=== PATIENT | female | born 1945 | race Hispanic/Latino ===

== ENCOUNTER 2021-07-10 09:00 | Observation (INO) | payer OTHER, MEDICARE ==
[2021-07-05 10:18] VITALS: BP 129/66
[2021-07-05 10:32] LABS: BASOPHILS % (AUTO) 1.2 % (0.0-5.0); EOSINOPHILS % (AUTO) 2.9 % (0.0-8.0); LYMPHOCYTES % (AUTO) 26.4 % (21.0-51.0); MEAN CORPUSCULAR HEMOGLOBIN 31.3 pg (27.0-33.0); MEAN CORPUSCULAR HGB CONC 33.7 g/dL (32.0-36.0); MONOCYTES % (AUTO) 6.2 % (3.0-13.0); NEUTROPHILS % (AUTO) 62.9 % (40.0-77.0); PLATELET COUNT (AUTO) 244 K/uL (130-400); RED BLOOD CELL COUNT(AUTO) 4.41 MIL/uL (4.00-5.50); RED CELL DISTRIBUTION WIDTH 12.6 % (11.0-15.5); WHITE BLOOD COUNT (AUTO) 4.8 K/uL (4.8-10.8)
[2021-07-05 10:44] LABS: INR 0.99 (0.85-1.15); PROTHROMBIN TIME 10.8 SEC (9.6-11.6)
[2021-07-05 10:44] LABS: CREATININE 0.8 mg/dL (0.5-1.5); POTASSIUM 4.7 mmol/L (3.5-5.1)
[2021-07-05 10:46] LABS: APPEARANCE,URINE Clear (CLEAR); BILIRUBIN,URINE Negative (NEGATIVE); COLOR,URINE Yellow (YELLOW); GLUCOSE, URINE (UA) Negative (NEGATIVE); KETONES,URINE Negative (NEGATIVE); LEUKOCYTE ESTERASE ,URINE Trace (NEGATIVE); NITRATE,URINE Negative (NEGATIVE); OCCULT BLOOD,URINE Small (NEGATIVE); PROTEIN,URINE Negative (NEGATIVE)
[2021-07-05 10:48] LABS: BACTERIA,URINE Rare /HPF (None Seen); RBC,URINE 0-1 /HPF (0-1); SQUAMOUS EPITHELIAL CELL,UR Rare /HPF (0-2); WBC,URINE 0-1 /HPF (0-1)
[~2021-07-10] VITALS: Ht 162.6 cm; Wt 80.7 kg
[2021-07-10] VITALS (23 sets, daily range): BP systolic 90–141; BP diastolic 40–90
[2021-07-10] MEDS: CEFAZOLIN SODIUM 1 GM VIAL IVP SCH ×4 (05:00→21:25)
[~2021-07-10 09:00] MED LIST: ACET-2743 PO; OMEP40CA21 PO; USTE45DI SQ
[2021-07-10] MEDS ORDERED: LACTATED RINGERS 1000ML 1,000 ML IV ONE (09:37)
[2021-07-10] MEDS ORDERED: MELO-108 PO (09:41)
[2021-07-10] MEDS ORDERED: LIDOCAINE PF 100MG/5ML (2%) SYRINGE 5ML ONE (10:15)
[2021-07-10] MEDS ORDERED: GLYCOPYRROLATE 1 MG/5 ML SYRINGE ONE (10:16)
[2021-07-10] MEDS ORDERED: DEXAMETHASONE SOD PHOSPHATE 10MG/ML 1ML VIAL ONE (10:16)
[2021-07-10] MEDS ORDERED: MIDAZOLAM HCL 1 MG/ML 2ML VIAL ONE (10:16)
[2021-07-10] MEDS ORDERED: ONDANSETRON 4MG INJ ONE (10:16)
[2021-07-10] MEDS ORDERED: PROPOFOL 10 MG/ML 20ML VIAL IV ONE (10:16)
[2021-07-10] MEDS ORDERED: NEOSTIGMINE 5MG/5ML SYR IV ONE (10:16)
[2021-07-10] MEDS ORDERED: ROCURONIUM 10MG/1ML SYR 10 MG/ML ML ONE (10:16)
[2021-07-10] MEDS ORDERED: FENTANYL CITRATE PF 50 MCG/1 ML 2ML VIAL ONE (10:17)
[2021-07-10] MEDS ORDERED: ROPIVACAINE 0.5% 5MG/ML 30ML IJ ONE (10:18)
[2021-07-10] MEDS ORDERED: CEFAZOLIN SODIUM 1 GM VIAL ONE (11:20)
[2021-07-10] MEDS ORDERED: ACETAMINOPHEN 500 MG TABLET ONE (11:33)
[2021-07-10] MEDS ORDERED: CELECOXIB 200 MG CAP ONE (11:33)
[2021-07-10] MEDS ORDERED: ALBUMIN (HUMAN) 5% 250 ML IV ONE (11:43)
[2021-07-10] MEDS ORDERED: TRANEXAMIC ACID 1000MG/10ML ONE ×2 (12:13→15:45)
[2021-07-10] MEDS ORDERED: PHENYLEPHRINE HCL 10 MG/ML 1ML VIAL IV ONE (12:24)
[2021-07-10] MEDS ORDERED: TRAMADOL HCL 50 MG TABLET PO PRN (15:00)
[2021-07-10] MEDS ORDERED: POTASSIUM CHLORIDE 10% ELIXIR 20 MEQ/15 ML UDCUP PO PRN (15:00)
[2021-07-10] MEDS ORDERED: KCL 20 MEQ ERTAB PO PRN (15:00)
[2021-07-10] MEDS ORDERED: POTASSIUM CHLORIDE 20MEQ/100ML 100 ML IV PRN (15:00)
[2021-07-10] MEDS ORDERED: ONDANSETRON 4MG INJ IVP PRN (15:00)
[2021-07-10] MEDS ORDERED: OXYCODONE HCL 5 MG TAB PO PRN (15:00)
[2021-07-10] MEDS ORDERED: TEMAZEPAM 15 MG CAPSULE PO PRN (15:00)
[2021-07-10] MEDS ORDERED: FERROUS FUMARATE 324 MG TABLET PO PRN (15:00)
[2021-07-10] MEDS: ACETAMINOPHEN 500 MG TABLET PO SCH ×2 (15:00→21:25)
[2021-07-10] MEDS ORDERED: DiphenhydrAMINE HCL 50 MG/ML VIAL IVP PRN (15:00)
[2021-07-10] MEDS ORDERED: LIDOCAINE HCL-MPF 1% 2ML VIAL IV PRN (15:00)
[2021-07-10] MEDS ORDERED: MEPERIDINE-PF 25 MG/ML SYG ONE ×3 (15:11→16:19)
[2021-07-10] MEDS: KETOROLAC 15MG/ML VIAL (15MG/ML) IV PRN (15:54)
[2021-07-10] MEDS: OXYCODONE HCL 5 MG TAB PO PRN (17:02)
[2021-07-10] MEDS: 0.9%NACL 1000ML 1,000 ML IV SCH (17:59)
[2021-07-10] MEDS ORDERED: USTEKINUMAB 45 MG SQ SCH ×2 (18:00→18:30)
[2021-07-10] MEDS ORDERED: [UNRECOGNIZED DRUG - REMARK] MISC SCH (18:30)
[2021-07-10] MEDS: CELECOXIB 200 MG CAP PO SCH (21:25)
[2021-07-10] MEDS: ASPIRIN 81 MG EC TAB PO SCH (21:25)
[2021-07-10] MEDS: PREGABALIN 25 MG CAP PO SCH (21:25)
[2021-07-11 00:16] VITALS: BP 105/50
[2021-07-11] MEDS: 0.9%NACL 1000ML 1,000 ML IV SCH (01:00)
[2021-07-11] MEDS: OXYCODONE HCL 5 MG TAB PO PRN ×3 (02:08→17:51)
[2021-07-11] MEDS: CEFAZOLIN SODIUM 1 GM VIAL IVP SCH ×2 (03:31→18:06)
[2021-07-11] MEDS: KETOROLAC 15MG/ML VIAL (15MG/ML) IV PRN ×2 (03:36→09:06)
[2021-07-11 04:16] VITALS: BP 100/49
[2021-07-11 04:37] LABS: HEMATOCRIT 30.1 % (36-48); MEAN CORPUSCULAR HEMOGLOBIN 30.8 pg (27.0-33.0); MEAN CORPUSCULAR HGB CONC 32.9 g/dL (32.0-36.0); MEAN CORPUSCULAR VOLUME 93.8 fL (79-99); RED BLOOD CELL COUNT(AUTO) 3.21 MIL/uL (4.00-5.50); RED CELL DISTRIBUTION WIDTH 12.4 % (11.0-15.5); WHITE BLOOD COUNT (AUTO) 9.1 K/uL (4.8-10.8)
[2021-07-11 04:38] LABS: CREATININE 0.8 mg/dL (0.5-1.5); POTASSIUM 4.6 mmol/L (3.5-5.1)
[2021-07-11] MEDS: CALCIUM CARB 500MG PO PRN ×2 (05:02→17:51)
[2021-07-11] MEDS: ACETAMINOPHEN 500 MG TABLET PO SCH ×3 (05:03→20:52)
[2021-07-11 07:30] VITALS: BP 102/52
[2021-07-11] MEDS: PREGABALIN 25 MG CAP PO SCH ×2 (08:39→20:52)
[2021-07-11] MEDS: ASPIRIN 81 MG EC TAB PO SCH ×2 (08:39→20:52)
[2021-07-11] MEDS: POLYETHYLENE GLYCOL 3350 17 GM POWD.PACK PO SCH (08:39)
[2021-07-11] MEDS: CELECOXIB 200 MG CAP PO SCH ×2 (08:39→20:52)
[2021-07-11] MEDS: PANTOPRAZOLE 40 MG TAB DR PO SCH (08:39)
[2021-07-11 11:00] VITALS: BP 105/40
[2021-07-11 16:00] VITALS: BP 101/41
[2021-07-11 19:00] VITALS: BP 96/52
[2021-07-12] VITALS: BP 97/48
[2021-07-12 03:49] LABS: HEMATOCRIT 27.7 % (36-48); MEAN CORPUSCULAR HGB CONC 33.2 g/dL (32.0-36.0); MEAN CORPUSCULAR VOLUME 93.3 fL (79-99); RED BLOOD CELL COUNT(AUTO) 2.97 MIL/uL (4.00-5.50); RED CELL DISTRIBUTION WIDTH 12.6 % (11.0-15.5); WHITE BLOOD COUNT (AUTO) 6.6 K/uL (4.8-10.8)
[2021-07-12 04:00] VITALS: BP 98/55
[2021-07-12] MEDS: ACETAMINOPHEN 500 MG TABLET PO SCH ×3 (06:07→23:00)
[2021-07-12] MEDS: OXYCODONE HCL 5 MG TAB PO PRN ×3 (06:12→16:00)
[2021-07-12] MEDS: ASPIRIN 81 MG EC TAB PO SCH ×2 (07:56→20:08)
[2021-07-12] MEDS: PREGABALIN 25 MG CAP PO SCH ×2 (07:56→20:08)
[2021-07-12] MEDS: CELECOXIB 200 MG CAP PO SCH ×2 (07:56→20:08)
[2021-07-12] MEDS: PANTOPRAZOLE 40 MG TAB DR PO SCH (07:56)
[2021-07-12] MEDS: POLYETHYLENE GLYCOL 3350 17 GM POWD.PACK PO SCH (07:57)
[2021-07-12 08:22] VITALS: BP 100/46
[2021-07-12 11:18] VITALS: BP 112/52
[2021-07-12] MEDS ORDERED: HYDR-4060 PO (15:03)
[2021-07-12] MEDS ORDERED: AEC81 PO (15:03)
[2021-07-12 15:53] VITALS: BP 110/56
[2021-07-13] MEDS ORDERED: BISACODYL 10 MG SUPP.RECT RC PRN (15:00)
== END 2021-07-12 23:50 ==
LOC: DAH 09:00 → DAHIP 09:01 → 4AH 17:13
PROVIDERS: ADMIT Orthopaedic Surgery; ATTEND Orthopaedic Surgery
DX: M16.11 Unilateral primary osteoarthritis, right hip (principal); Z20.822 Contact with and (suspected) exposure to COVID-19; D62 Acute posthemorrhagic anemia; L40.9 Psoriasis, unspecified; Z90.710 Acquired absence of both cervix and uterus; Z79.899 Other long term (current) drug therapy
CPT/HCPCS: 27130; 36415 ×3; 64447; 73503; 76942; 80048 ×2; 81001; 85025; 85027 ×2; 85610; 87088; 87635; 87641; 96374; 96375; 96376; 97039 ×4; 97116 ×4; 97161; 97530 ×3; A4215; A4221; A4222; A4223; A4649 ×5; A4663; A4930; A5120; A9272; C1776; C9803; G0378 ×54; J0690 ×4; J1100; J1885 ×3; J2001; J2175 ×3; J2250; J2370; J2405; J2704; J2710; J2795; J3490 ×3; J7120 ×2; P9045; 93005; J3010